=== PATIENT | female | born 1990 | race Caucasian/White ===

== ENCOUNTER 2019-09-21 23:43 | Emergency (ER) | payer BC ==
[~2019-09-21] VITALS: Ht 170.2 cm; Wt 81.6 kg
[2019-09-22] MEDS ORDERED: ONDANSETRON 4 MG TAB.RAPDIS ONE (00:11)
[2019-09-22] MEDS ORDERED: HYDROCODONE/APAP 5/325MG 1 EACH TABLET ONE (00:11)
[2019-09-22] MEDS: ONDANSETRON 4 MG TAB.RAPDIS SL ONE (00:14)
[2019-09-22] MEDS: HYDROCODONE/APAP 5/325MG 1 EACH TABLET PO ONE (00:14)
[2019-09-22 01:01] VITALS: BP 124/78
== END 2019-09-22 01:01 | disposition home or self-care (01) ==
LOC: ER 23:47
DX: S93.692A Other sprain of left foot, initial encounter (principal); X50.1XXA Overexertion from prolonged static or awkward postures, initial encounter; Y93.K1 Activity, walking an animal; Y92.89 Other specified places as the place of occurrence of the external cause; Y99.8 Other external cause status
CPT/HCPCS: 29515; 73630; 99283; Q0162